=== PATIENT | female | born 1980 | race Caucasian/White ===

== ENCOUNTER 2016-11-21 10:52 | Emergency (ER) | payer OTHER ==
[2016-11-21 10:52] VITALS: BMI 27.3
[2016-11-21 11:08] VITALS: BP 125/83; PULSE 67; RESP 18; TEMP 98; O2SAT 99
--- NOTE | 2016-11-21 12:30 | C.PDOC ---
History Of Present Illness 36 year old female presents to the ED c/o urinary urgency for 3 weeks and is feeling uncomfortable. Patients notes having a UTI a year ago and has left over ABx (Flagyl PO). Patient notes taking it for 5 days and it didn't help. Patient denies fever, chills, nausea, vomiting, vaginal discharge, vaginal bleeding, or any other complaints. Time Seen by Provider: 11/21/16 12:08 Chief Complaint (Nursing): Female Genitourinary History Per: Patient History/Exam Limitations: no limitations Onset/Duration Of Symptoms: Days Current Symptoms Are (Timing): Still Present Severity: Mild Associated Symptoms: denies: Fever, Chills, Nausea, Vomiting Past Medical History Reviewed: Historical Data, Nursing Documentation, Vital Signs Vital Signs: Last Vital Signs Temp 98 F 11/21/16 11:07 Pulse 67 11/21/16 11:07 Resp 18 11/21/16 11:07 BP 125/83 11/21/16 11:07 Pulse Ox 99 11/21/16 13:34 - Medical History PMH: No Chronic Diseases Surgical History: Appendectomy - [facility] Procedures MONITORING NOS (04/28/15) LOW CERVICAL (04/28/15) Family History: States: Unknown Family Hx - Social History Hx Alcohol Use: No Hx Substance Use: No Review Of Systems Except As Marked, All Systems Reviewed And Found Negative. Constitutional: Negative for: Fever, Chills Gastrointestinal: Negative for: Nausea, Vomiting Genitourinary: Positive for: Frequency (Urinary urgency). Negative for: Vaginal Discharge, Vaginal Bleeding Physical Exam - Physical Exam Appears: Non-toxic, No Acute Distress Skin: Warm, Dry Cardiovascular: Rhythm Regular, No Murmur Respiratory: Normal Breath Sounds, No Rales, No Rhonchi, No Wheezing Gastrointestinal/Abdominal: Soft, No Tenderness Pelvic: Normal External Exam, No Vaginal Bleeding, No Vaginal Discharge Neurological/Psych: Oriented x3, Normal Speech, Normal Cognition Gait: Steady ED Course And Treatment O2 Sat by Pulse Oximetry: 99 (Room air) Pulse Ox Interpretation: Normal Medical Decision Making Medical Decision Making: Plans: -Urinary labs Ua midly positicve but urine very dilute Plan culture sent cover with abx pcp follow up Disposition - Disposition Referrals: [facility] [Outside] Disposition: HOME/ ROUTINE Disposition Time: 13:14 Condition: GOOD Prescriptions: Nitrofurantoin Macrocrystals [Macrobid] 1 cap PO BID #14 cap Phenazopyridine [Pyridium] 1 tab PO TID PRN #10 tab PRN Reason: .urinary pain Instructions: Urinary Tract Infection in Women (ED) Print Language: MALAY - Clinical Impression Clinical Impression: UTI (urinary tract infection) - Scribe Statement The provider has reviewed the documentation as recorded by the Scribe Sana martínez All medical record entries made by the Rustamibangel were at my direction and personally dictated by me. I have reviewed the chart and agree that the record accurately reflects my personal performance of the history, physical exam, medical decision making, and the department course for this patient. I have also personally directed, reviewed, and agree with the discharge instructions and disposition.
[2016-11-21 12:51] LABS: RBC URINE < 1 /hpf (0-3); URINE BACTERIA OCC (<OCC); URINE BILIRUBIN NEGATIVE (NEGATIVE); URINE BLOOD 2+ (NEGATIVE); URINE GLUCOSE (UA) NORMAL (Normal); URINE KETONE NEGATIVE (NEGATIVE); URINE LEUKOCYTE ESTERASE 3+ Leu/uL (Negative); URINE PROTEIN NEGATIVE (NEGATIVE); URINE UROBILINOGEN NORMAL mg/dL (0.2-1.0); WBC URINE 8 /hpf (0-5)
[2016-11-21 13:09] LABS: URINE COLOR STRAW (YELLOW)
== END 2016-11-21 13:26 | disposition home or self-care (01) ==
LOC: C.ER 10:52
DX: N39.0 Urinary tract infection, site not specified (principal); B96.20 Unspecified Escherichia coli [E. coli] as the cause of diseases classified elsewhere